=== PATIENT | female | born 1955 | race American Indian/Alaskan Native ===

== ENCOUNTER 2016-03-03 11:51 | Outpatient (CLI) | payer BC ==
[2016-03-03 12:33] LABS: Albumin 4.2 g/dL (3.9-5); BUN/Creatinine Ratio 15.33; Chloride 97.2 mmol/L (98-107); Phosphorous 3.7 mg/dL (2.5-4.5); Potassium 3.9 mmol/L (3.6-5.0)
[2016-03-03 13:27] LABS: Calcium 24 Hour,Urine 11.7; Calcium, Urine 0.9 mg/dL (6.8-21.3)
[2016-03-05 17:28] LABS: Vitamin D, 25-OH, Total 39 ng/mL (30-100)
== END 2016-03-03 11:52 | disposition home or self-care (01) ==
LOC: LAB 11:51
PROVIDERS: ATTEND Internal Medicine Nephrology
DX: I12.9 Hypertensive chronic kidney disease with stage 1 through stage 4 chronic kidney disease, or unspecified chronic kidney disease (principal); N18.3 Chronic kidney disease, stage 3 (moderate); E11.22 Type 2 diabetes mellitus with diabetic chronic kidney disease; E78.5 Hyperlipidemia, unspecified; E55.9 Vitamin D deficiency, unspecified
CPT/HCPCS: 36415; 80048; 82040; 82306; 82340; 82570; 82652; 83970; 84100

== ENCOUNTER 2016-03-16 13:45 | Outpatient (CLI) | payer BC ==
--- NOTE | 2016-03-16 16:06 | Mammography Report ---
Bilateral mammogram: Compared to 12/24/14. CAD study utilized. Findings: Predominance of adipose tissue bilaterally. Benign scattered calcifications bilaterally without significant interval change. Benign axillary nodes. No microcalcification. Impression: Benign findings. Annual followup recommended. BI-RADS CATEGORY: 2 = Benign ACR BI-RADS MAMMOGRAPHIC CODES: 0 = Needs additional imaging evaluation; 1 = Negative; 2 = Benign; 3 = Probably benign; 4 = Suspicious; 5 = Malignant; 6 = Known biopsy-proven malignancy COMMENT: 1. Dense breast tissue, i.e., adenosis, fibrocystic changes, etc., may obscure an underlying neoplasm. 2. Approximately 10% of cancers are not detected with mammography. 3. A negative mammography report should not delay biopsy if a clinically suspicious mass is present. COMMENT: Patient follow-up letters are generated in [employer].
== END 2016-03-16 13:46 | disposition home or self-care (01) ==
LOC: MAMMO 13:45
PROVIDERS: ATTEND Internal Medicine
DX: Z12.31 Encounter for screening mammogram for malignant neoplasm of breast (principal)
CPT/HCPCS: 77067; G0202

== ENCOUNTER 2017-03-03 07:16 | Outpatient (CLI) | payer BC ==
--- NOTE | 2017-03-03 08:15 | XRay Report ---
BILATERAL KNEES, STANDING AP VIEW: History: Bilateral primary osteoarthritis of knees. Findings: No comparison. There is normal bone mineralization. No fracture or suspicious bone lesion is identified. No valgus or varus deformity. Minimal joint space narrowing and marginal spurring is noted in the medial compartment of the right knee. The lateral compartment is unremarkable. The left knee is within normal limits. Impression: Minimal osteoarthritic disease in the medial compartment of the right knee.
== END 2017-03-03 07:17 | disposition home or self-care (01) ==
LOC: XRAY 07:16
PROVIDERS: ATTEND Orthopaedic Surgery
DX: M17.11 Unilateral primary osteoarthritis, right knee (principal)
CPT/HCPCS: 73565

== ENCOUNTER 2017-05-03 13:12 | Outpatient (CLI) | payer BC ==
--- NOTE | 2017-05-05 07:21 | Mammography Report ---
Bilateral mammogram: Compared to 03/16/16. CAD study utilized. Findings: Predominance adipose tissue bilaterally. Benign calcifications left breast. Benign density right and left breast. No microcalcification. Impression: Benign findings. Annual followup recommended. BI-RADS CATEGORY: 2 = Benign ACR BI-RADS MAMMOGRAPHIC CODES: 0 = Needs additional imaging evaluation; 1 = Negative; 2 = Benign; 3 = Probably benign; 4 = Suspicious; 5 = Malignant; 6 = Known biopsy-proven malignancy COMMENT: 1. Dense breast tissue, i.e., adenosis, fibrocystic changes, etc., may obscure an underlying neoplasm. 2. Approximately 10% of cancers are not detected with mammography. 3. A negative mammography report should not delay biopsy if a clinically suspicious mass is present. COMMENT: Patient follow-up letters are generated in [facility].
== END 2017-05-03 13:13 | disposition home or self-care (01) ==
LOC: MAMMO 13:12
PROVIDERS: ATTEND Internal Medicine
DX: Z12.31 Encounter for screening mammogram for malignant neoplasm of breast (principal)
CPT/HCPCS: 77067

== ENCOUNTER 2017-10-28 07:06 | Outpatient (CLI) | payer BC ==
[2017-10-28 07:30] LABS: Basophils # (Auto) 0.1 K/mm3 (0.0-0.1); Basophils % (Auto) 0.7 % (0.0-1.8); Eosinophils # (Auto) 0.1 K/mm3 (0.0-0.4); Eosinophils % (Auto) 1.1 % (0.0-4.3); Hematocrit 38.1 % (30.3-42.9); Hemoglobin 12.6 gm/dl (10.1-14.3); Lymphocytes # (Auto) 1.9 K/mm3 (1.2-5.4); Lymphocytes % (Auto) 20.1 % (13.4-35.0); Mean Corpuscular HGB Conc 33 % (30-34); Mean Corpuscular Hemoglobin 28 pg (28-32); Mean Corpuscular Volume 84 fl (79-97); Monocytes # (Auto) 0.9 K/mm3 (0.0-0.8); Monocytes % (Auto) 9.2 % (0.0-7.3); Platelet Count 381 K/mm3 (140-440); Red Blood Count 4.55 M/mm3 (3.65-5.03); Red Cell Distribution Width 14.5 % (13.2-15.2)
[2017-10-28 07:55] LABS: Albumin 4.5 g/dL (3.9-5); Calcium 10.4 mg/dL (8.4-10.2)
== END 2017-10-28 07:07 | disposition home or self-care (01) ==
LOC: LAB 07:06
PROVIDERS: ATTEND Internal Medicine Nephrology
DX: E11.22 Type 2 diabetes mellitus with diabetic chronic kidney disease (principal); I12.9 Hypertensive chronic kidney disease with stage 1 through stage 4 chronic kidney disease, or unspecified chronic kidney disease; N18.3 Chronic kidney disease, stage 3 (moderate); E11.65 Type 2 diabetes mellitus with hyperglycemia; E78.5 Hyperlipidemia, unspecified; E55.9 Vitamin D deficiency, unspecified; J45.909 Unspecified asthma, uncomplicated; Z90.710 Acquired absence of both cervix and uterus; Z87.891 Personal history of nicotine dependence
CPT/HCPCS: 36415; 80048; 82040; 82306; 83970; 84100; 85025

== ENCOUNTER 2017-11-29 09:57 | Outpatient (CLI) | payer BC ==
--- NOTE | 2017-11-29 14:16 | Nuclear Medicine Report ---
NUCLEAR MEDICINE PARATHYROID SCAN: History: Hyperparathyroidism. FINDINGS: The initial scintigraphic images of the thyroid bed demonstrate normal and symmetric uptake of the radiotracer in the thyroid bed. Normal salivary and mediastinal activity is identified. The delayed images demonstrate normal washout of the radiotracer from the thyroid bed. No persistent activity is identified to suggest a parathyroid adenoma. IMPRESSION: Unremarkable parathyroid scan.
== END 2017-11-29 09:58 | disposition home or self-care (01) ==
LOC: NM 09:57
PROVIDERS: ATTEND Internal Medicine Nephrology
DX: E21.3 Hyperparathyroidism, unspecified (principal); R94.4 Abnormal results of kidney function studies; I10 Essential (primary) hypertension; E78.5 Hyperlipidemia, unspecified; E11.65 Type 2 diabetes mellitus with hyperglycemia
CPT/HCPCS: 78070; A9500

== ENCOUNTER 2017-12-16 07:22 | Outpatient (CLI) | payer BC ==
[2017-12-16 07:59] LABS: Lipase 35 units/L (13-60)
== END 2017-12-16 07:23 | disposition home or self-care (01) ==
LOC: LAB 07:22
PROVIDERS: ATTEND Internal Medicine
DX: E11.65 Type 2 diabetes mellitus with hyperglycemia (principal); R11.0 Nausea; I10 Essential (primary) hypertension; E78.5 Hyperlipidemia, unspecified; J45.909 Unspecified asthma, uncomplicated; Z90.710 Acquired absence of both cervix and uterus; Z87.891 Personal history of nicotine dependence
CPT/HCPCS: 36415; 82150; 83036; 83690

== ENCOUNTER 2018-10-14 12:11 | Outpatient (CLI) | payer BC ==
[2018-10-14 12:53] LABS: Creatinine,Urine 49.3 mg/dL (0.1-20.0)
[2018-10-14 12:57] LABS: Albumin 4.2 g/dL (3.9-5)
[2018-10-14 12:57] LABS: Microalbumin/Creatinine Ratio 24.3 ug/mg
[2018-10-14 13:17] LABS: Chol/HDL Ratio 2.87 %
[2018-10-14 13:38] LABS: Hematocrit 39.6 % (30.3-42.9); Hemoglobin 13.4 gm/dl (10.1-14.3); Mean Corpuscular HGB Conc 34 % (30-34); Mean Corpuscular Volume 85 fl (79-97); Platelet Count 302 K/mm3 (140-440); Red Blood Count 4.64 M/mm3 (3.65-5.03); Red Cell Distribution Width 14.3 % (13.2-15.2)
== END 2018-10-14 12:12 | disposition home or self-care (01) ==
LOC: LAB 12:11
PROVIDERS: ATTEND Internal Medicine
DX: E11.65 Type 2 diabetes mellitus with hyperglycemia (principal); I10 Essential (primary) hypertension; J45.909 Unspecified asthma, uncomplicated; Z90.710 Acquired absence of both cervix and uterus
CPT/HCPCS: 36415; 80053; 80061; 82043; 83036; 84436; 84443; 84481; 85027

== ENCOUNTER 2018-11-07 09:57 | Outpatient (CLI) | payer BC ==
--- NOTE | 2018-11-07 12:59 | Mammography Report ---
DIGITAL SCREENING MAMMOGRAM WITH CAD, 11/07/2018 INDICATION: Routine screening mammography. TECHNIQUE: Digital bilateral 2D mammography was obtained in the craniocaudal and mediolateral obliq ue projections. This examination was interpreted with the benefit of Computer-Aided Detection analysi s. COMPARISON: 05/03/2017 and 03/16/2016 FINDINGS: Breast Density: There are scattered areas of fibroglandular density. There is no evidence of dominant mass, suspicious calcifications or architectural distortion in eithe r breast. A right upper biopsy clip and a stable density at the clip. Bilateral calcifications with b enign morphology are stable. IMPRESSION: No mammographic evidence of malignancy. Follow up recommendation: Routine yearly BI-RADS Category 2: Benign. A "normal" or negative report should not discourage follow up or biopsy of a clinically significant f inding. A written summary of these findings will be mailed to the patient. The patient will be entered into a mammography reporting system which will generate a reminder letter for the patient's next appointmen t at the appropriate interval. The [employer] recommends yearly mammograms starting at age 40 and continuing as l aram as a woman is in good health. Breast MRI is recommended for women with an approximate 20-25% or greater lifetime risk of breast cancer, including women with a strong family history of breast or ova tanisha cancer or who have been treated for Hodgkin's disease. Signer Name: Paulino Garcia MD Signed: 11/07/2018 12:54 PM Workstation Name: [id number]
== END 2018-11-07 09:58 | disposition home or self-care (01) ==
LOC: MAMMO 09:57
PROVIDERS: ATTEND Internal Medicine
DX: Z12.31 Encounter for screening mammogram for malignant neoplasm of breast (principal)
CPT/HCPCS: 77067

== ENCOUNTER 2019-01-11 06:15 | Outpatient (CLI) | payer BC ==
[2019-01-11 07:05] LABS: Albumin 4.2 g/dL (3.9-5); Calcium 9.7 mg/dL (8.4-10.2); Chol/HDL Ratio 2.93 %
[2019-01-11 07:09] LABS: Hemoglobin 13.1 gm/dl (10.1-14.3); Mean Corpuscular HGB Conc 33 % (30-34); Mean Corpuscular Volume 87 fl (79-97); Platelet Count 286 K/mm3 (140-440); Red Blood Count 4.61 M/mm3 (3.65-5.03); Red Cell Distribution Width 14.3 % (13.2-15.2)
[2019-01-11 07:27] LABS: Free T4 (Free Thyroxine) 1.31 ng/dL (0.76-1.46)
== END 2019-01-11 06:16 | disposition home or self-care (01) ==
LOC: LAB 06:15
PROVIDERS: ATTEND Physician Assistant
DX: E11.9 Type 2 diabetes mellitus without complications (principal); E78.5 Hyperlipidemia, unspecified
CPT/HCPCS: 36415; 80053; 80061; 83036; 84439; 84443; 85027

== ENCOUNTER 2019-03-21 07:32 | Outpatient (CLI) | payer BC ==
--- NOTE | 2019-03-21 08:29 | XRay Report ---
CHEST 2 VIEWS INDICATION: ACUTE BRONCHITIS UNSPECIFIED ORGANISM/[id number]/[id number]. COMPARISON: 12/04/2014 FINDINGS: Support devices: None. Heart: Within normal limits. Lungs/pleura: No acute air space or interstitial disease. No pneumothorax. Additional findings: None. IMPRESSION: 1. No acute findings. Signer Name: Marco Staley MD Signed: 03/21/2019 8:24 AM Workstation Name: [id number]
== END 2019-03-21 07:33 | disposition home or self-care (01) ==
LOC: XRAY 07:32
PROVIDERS: ATTEND Internal Medicine
DX: R05 Cough (principal); R06.02 Shortness of breath; J20.9 Acute bronchitis, unspecified
CPT/HCPCS: 71046

== ENCOUNTER 2019-07-25 05:40 | Outpatient (CLI) | payer BC ==
[2019-07-25 06:34] LABS: Hematocrit 40.9 % (30.3-42.9); Hemoglobin 13.4 gm/dl (10.1-14.3); Mean Corpuscular HGB Conc 33 % (30-34); Mean Corpuscular Volume 88 fl (79-97); Red Blood Count 4.64 M/mm3 (3.65-5.03)
[2019-07-25 06:41] LABS: Platelet Count 289 K/mm3 (140-440)
[2019-07-25 07:10] LABS: Albumin 4.2 g/dL (3.9-5); Calcium 9.9 mg/dL (8.4-10.2); Chol/HDL Ratio 2.83 %
== END 2019-07-25 05:41 | disposition home or self-care (01) ==
LOC: LAB 05:40
PROVIDERS: ATTEND Physician Assistant
DX: E11.9 Type 2 diabetes mellitus without complications (principal); E78.2 Mixed hyperlipidemia
CPT/HCPCS: 36415; 80053; 80061; 83036; 84436; 84443; 85027

== ENCOUNTER 2019-12-08 05:37 | Outpatient (CLI) | payer BC ==
[2019-12-08 06:24] LABS: Hematocrit 38.1 % (30.3-42.9); Hemoglobin 13.2 gm/dl (10.1-14.3); Mean Corpuscular HGB Conc 35 % (30-34); Mean Corpuscular Volume 88 fl (79-97); Platelet Count 286 K/mm3 (140-440); Red Blood Count 4.33 M/mm3 (3.65-5.03); Red Cell Distribution Width 13.4 % (13.2-15.2)
[2019-12-08 06:44] LABS: Alanine Aminotransferase 23 units/L (7-56); Albumin 4.3 g/dL (3.9-5); BUN/Creatinine Ratio 15; Blood Urea Nitrogen 17 mg/dL (7-17); Calcium 10.1 mg/dL (8.4-10.2); HDL Cholesterol 58 mg/dL (40-59); Hemolysis Index 3; LDL Cholesterol,Direct 115 mg/dL (50-130)
== END 2019-12-08 05:38 | disposition home or self-care (01) ==
LOC: LAB 05:37
PROVIDERS: ATTEND Physician Assistant
DX: E11.9 Type 2 diabetes mellitus without complications (principal)
CPT/HCPCS: 36415; 80053; 80061; 83036; 85027

== ENCOUNTER 2020-02-28 07:17 | Outpatient (CLI) | payer BC ==
[2020-02-28 08:05] LABS: Hematocrit 39.9 % (30.3-42.9); Hemoglobin 13.4 gm/dl (10.1-14.3); Mean Corpuscular HGB Conc 34 % (30-34); Mean Corpuscular Volume 88 fl (79-97); Platelet Count 320 K/mm3 (140-440); Red Blood Count 4.54 M/mm3 (3.65-5.03); Red Cell Distribution Width 13.9 % (13.2-15.2)
[2020-02-28 08:25] LABS: Alanine Aminotransferase 20 units/L (7-56); Albumin 4.3 g/dL (3.9-5); BUN/Creatinine Ratio 16; Blood Urea Nitrogen 18 mg/dL (7-17); Chol/HDL Ratio 3.07 %; HDL Cholesterol 65 mg/dL (40-59); Hemolysis Index 0; LDL Cholesterol,Direct 120 mg/dL (50-130)
[2020-02-28 09:00] LABS: Free T4 (Free Thyroxine) 1.25 ng/dL (0.76-1.46)
== END 2020-02-28 07:18 | disposition home or self-care (01) ==
LOC: LAB 07:17
PROVIDERS: ATTEND Physician Assistant
DX: E11.9 Type 2 diabetes mellitus without complications (principal)
CPT/HCPCS: 36415; 80053; 80061; 83036; 84439; 84443; 84481; 85027

== ENCOUNTER 2020-06-19 06:50 | Outpatient (CLI) | payer BC ==
[2020-06-19 07:43] LABS: Basophils # (Auto) 0.1 K/mm3 (0.0-0.1); Basophils % (Auto) 1.5 % (0.0-1.8); Eosinophils # (Auto) 0.1 K/mm3 (0.0-0.4); Eosinophils % (Auto) 0.7 % (0.0-4.3); Hematocrit 42.9 % (30.3-42.9); Hemoglobin 14.3 gm/dl (10.1-14.3); Lymphocytes # (Auto) 2.3 K/mm3 (1.2-5.4); Lymphocytes % (Auto) 23.5 % (13.4-35.0); Mean Corpuscular HGB Conc 33 % (30-34); Mean Corpuscular Volume 90 fl (79-97); Monocytes # (Auto) 0.9 K/mm3 (0.0-0.8); Monocytes % (Auto) 9.2 % (0.0-7.3); Platelet Count 313 K/mm3 (140-440); Red Blood Count 4.78 M/mm3 (3.65-5.03); Red Cell Distribution Width 14.1 % (13.2-15.2)
[2020-06-19 08:03] LABS: Calcium 10.1 mg/dL (8.4-10.2); Chol/HDL Ratio 3.31 %
== END 2020-06-19 06:51 | disposition home or self-care (01) ==
LOC: LAB 06:50
PROVIDERS: ATTEND Physician Assistant
DX: E11.9 Type 2 diabetes mellitus without complications (principal)
CPT/HCPCS: 36415; 80053; 80061; 83036; 84436; 84443; 84481; 85025

== ENCOUNTER 2020-12-06 09:48 | Outpatient (CLI) | payer BC ==
--- NOTE | 2020-12-06 11:41 | Mammography Report ---
DIGITAL SCREENING MAMMOGRAM WITH CAD, 12/06/2020 CLINICAL INFORMATION / INDICATION: Routine screening mammography. SCREENING MAMMOGRAM TECHNIQUE: Digital bilateral 2D mammography was obtained in the craniocaudal and mediolateral obliqu e projections. This examination was interpreted with the benefit of Computer-Aided Detection analysis . COMPARISON: 11/07/2018. FINDINGS: Breast Density: There are scattered areas of fibroglandular density. No dominant mass, suspicious calcifications, or architectural distortion in the right breast. Increasing calcifications anterior left breast both medially and laterally. Magnification views are r ecommended. IMPRESSION: Increasing left breast calcifications. Follow up recommendation: Special View: Mag BI-RADS Category 0: Incomplete. Needs additional imaging evaluation and/or prior mammograms for juanito carter. A "normal" or negative report should not discourage follow up or biopsy of a clinically significant f inding. A written summary of these findings will be mailed to the patient. The patient will be entered into a mammography reporting system which will generate a reminder letter for the patient's next appointmen t at the appropriate interval. The [employer] recommends yearly mammograms starting at age 40 and continuing as l aram as a woman is in good health. Breast MRI is recommended for women with an approximate 20-25% or greater lifetime risk of breast cancer, including women with a strong family history of breast or ova tanisha cancer or who have been treated for Hodgkin's disease. Signer Name: Bob Parker MD Signed: 12/06/2020 11:37 AM Workstation Name: [email or web address]
--- NOTE | 2020-12-06 14:42 | Magnetic Resonance Report ---
MRI LEFT ANKLE WITHOUT CONTRAST INDICATION / CLINICAL INFORMATION: TENDONITIS. TECHNIQUE: Multiplanar, multisequence MR images were obtained. No contrast used. Marker placed on the medial aspect of the midfoot. COMPARISON: None available. FINDINGS: ACHILLES TENDON: No significant abnormality. PLANTAR FASCIA: No significant abnormality. POSTERIOR TIBIAL / FLEXOR TENDONS: Mild tenosynovitis of posterior tibial tendon. PERONEAL TENDONS: No significant abnormality. ANTERIOR TIBIAL / EXTENSOR TENDONS: No significant abnormality. TALOFIBULAR LIGAMENTS: No significant abnormality. TIBIOFIBULAR LIGAMENTS: No significant abnormality. DISTAL TIBIOFIBULAR SYNDESMOSIS: No significant abnormality. CALCANEOFIBULAR LIGAMENT: No significant abnormality. DELTOID LIGAMENT: No significant abnormality. SPRING LIGAMENT: Severely attenuated. TIBIOTALAR JOINT SPACE: No chondrosis or articular cartilage defect. No significant joint effusion or synovitis. No intra-articular bodies. SUBTALAR JOINTS: No significant abnormality. SINUS TARSI: No significant abnormality. TARSAL TUNNEL: No significant abnormality. BONES / OTHER JOINTS: No significant bone marrow edema. No fracture. No osseous lesion. Mild pes plan us. SUBCUTANEOUS SOFT TISSUES: Edema in subcutaneous tissues at the medial ankle deep to the external mar ker. ADDITIONAL FINDINGS: None. IMPRESSION: 1. Mild tenosynovitis of posterior tibial tendon with mild pes planus suggestive of posterior tibial dysfunction. Report dictated by: Zan Pressley MD Report dictated on: 12/06/2020 12:22 PM I have reviewed the images, agree with this report, and edited this report as needed. Signer Name: Elinor Byrd MD Signed: 12/06/2020 2:38 PM Workstation Name: [email or web address]
== END 2020-12-06 09:49 | disposition home or self-care (01) ==
LOC: MRI 09:48
PROVIDERS: ATTEND Internal Medicine
DX: Z12.31 Encounter for screening mammogram for malignant neoplasm of breast (principal); M76.822 Posterior tibial tendinitis, left leg
CPT/HCPCS: 73721; 77067

== ENCOUNTER 2021-05-22 13:38 | Outpatient (CLI) | payer BC ==
--- NOTE | 2021-05-22 15:21 | Mammography Report ---
DIGITAL DIAGNOSTIC MAMMOGRAM WITH CAD CONVENTIONAL, 05/22/2021 CLINICAL INFORMATION / INDICATION: Callback ABNORMAL MAMMOGRAM TECHNIQUE: Digital left mammographic imaging was performed. Magnification views were obtained. This examination was interpreted with the benefit of Computer-aided Detection analysis. COMPARISON: December 06, 2020 FINDINGS: Breast Density: There are scattered areas of fibroglandular density. Within the upper outer quadrant of the anterior third of the left breast there is a linear distributi on of coarse heterogeneous calcifications measuring up to 2.8 cm. IMPRESSION: Suspicious coarse heterogeneous calcifications within the left upper outer breast. Stereo tactic biopsy is recommended. Follow up recommendation: Biopsy BI-RADS Category 4: SUSPICIOUS FOR MALIGNANCY. A "normal" or negative report should not discourage follow up or biopsy of a clinically significant f inding. A written summary of these findings will be mailed to the patient. The patient will be entered into a mammography reporting system which will generate a reminder letter for the patient's next appointmen t at the appropriate interval. According to the [employer], yearly mammograms are recommended starting at age 40 and continuing as long as a woman is in good health. Breast MRI is recommended for women with an zackery roximately 20-25% or greater lifetime risk of breast cancer, including women with a strong family his tory of breast or ovarian cancer and women who have been treated for Hodgkin's disease. Signer Name: Jose Yu DO Signed: 05/22/2021 3:17 PM Workstation Name: [email or web address]
== END 2021-05-22 13:39 | disposition home or self-care (01) ==
LOC: MAMMO 13:38
PROVIDERS: ATTEND Internal Medicine
DX: R92.1 Mammographic calcification found on diagnostic imaging of breast (principal)

== ENCOUNTER 2021-06-16 08:13 | Outpatient (CLI) | payer BC ==
[2021-06-16 09:02] LABS: Hematocrit 43.1 % (30.3-42.9); Hemoglobin 14.1 gm/dl (10.1-14.3); Mean Corpuscular HGB Conc 33 % (30-34); Mean Corpuscular Volume 90 fl (79-97); Platelet Count 280 K/mm3 (140-440); Red Blood Count 4.81 M/mm3 (3.65-5.03); Red Cell Distribution Width 14.1 % (13.2-15.2)
[2021-06-16 09:04] LABS: Albumin 4.6 g/dL (3.9-5); Calcium 10.9 mg/dL (8.4-10.2); Chol/HDL Ratio 3.01 %
== END 2021-06-16 08:14 | disposition home or self-care (01) ==
LOC: LAB 08:13
PROVIDERS: ATTEND Specialist
DX: E11.9 Type 2 diabetes mellitus without complications (principal)
CPT/HCPCS: 36415; 80053; 80061; 83036; 85027

== ENCOUNTER 2021-07-01 10:15 | Outpatient (CLI) | payer BC ==
--- NOTE | 2021-07-01 16:10 | Operative Report ---
Operative Report Operative Report: Procedure Date: 2021-07-01 Side: Left Facility: [facility] - Office Indication: Calcifications without mass Consent: Written - Including description, alternatives, risks Pre-proc. Imaging: Mammogram BIRADS: 4 - Suspicious Lesion Location: Upper outer quadrant Imaging Approach: Lateral to medial Skin Prep: Iodine Anesthesia Type: Lidocaine with epinephrine Amount: 6 - 10 cc Stereotactic Unit: [employer] upright Biopsy Device: Mammotome Gauge/Size: 8 Number of Cores: 11 - 15 Targeting Accuracy: Excellent Specimen Radiograph: Targeted calcifications obtained Biopsy Marker: Not inserted Marker Place. Conf.: Digital stereotactic images Marker Position: Incision Closure: Steristrips Planned Follow-up: Office appointment given Immed. Complications: None Comments: Biopsy marker placement attempted but unsuccessful. Targeted microcalcifications were linear over 3 cm area residual calcifications marked with targeted area.
--- NOTE | 2021-07-02 08:47 | Mammography Report ---
DIGITAL DIAGNOSTIC MAMMOGRAM WITH CAD , 07/02/2021 CLINICAL INFORMATION / INDICATION: This is a postprocedure mammogram following stereotactic biopsy. TECHNIQUE: Digital left mammographic imaging was performed. This examination was interpreted with the benefit of Computer-aided Detection analysis. COMPARISON: Prior mammogram 05/22/2021 FINDINGS: Breast Density: There are scattered areas of fibroglandular density. Postprocedure mammogram following stereotactic biopsy shows partial removal of grouped calcifications in the upper outer anterior left breast. Biopsy changes are seen in the region of the calcifications . Per notes, attempt was made to deploy a clip which was unsuccessful. No clip is visualized on the p ostprocedure mammogram. However, residual calcifications are present at the site of biopsy which can be localized if clinically required. IMPRESSION: Postprocedure mammogram shows adequate sampling of the calcifications in question, upper outer quadrant left breast. Pathology correlation will will be performed by physician performing the biopsy. Follow up recommendation: No recall. Post biopsy imaging. A "normal" or negative report should not discourage follow up or biopsy of a clinically significant f inding. A written summary of these findings will be mailed to the patient. The patient will be entered into a mammography reporting system which will generate a reminder letter for the patient's next appointmen t at the appropriate interval. According to the [employer], yearly mammograms are recommended starting at age 40 and continuing as long as a woman is in good health. Breast MRI is recommended for women with an zackery roximately 20-25% or greater lifetime risk of breast cancer, including women with a strong family his tory of breast or ovarian cancer and women who have been treated for Hodgkin's disease. Signer Name: Shabnam Daniel MD Signed: 07/02/2021 8:42 AM Workstation Name: [id number]
== END 2021-07-01 10:16 | disposition home or self-care (01) ==
LOC: SPVWC 10:15
PROVIDERS: ATTEND Internal Medicine
DX: R92.1 Mammographic calcification found on diagnostic imaging of breast (principal); R92.0 Mammographic microcalcification found on diagnostic imaging of breast; R92.8 Other abnormal and inconclusive findings on diagnostic imaging of breast; E11.65 Type 2 diabetes mellitus with hyperglycemia; I10 Essential (primary) hypertension; E78.5 Hyperlipidemia, unspecified; J45.909 Unspecified asthma, uncomplicated; F32.9 Major depressive disorder, single episode, unspecified; Z98.890 Other specified postprocedural states; Z90.710 Acquired absence of both cervix and uterus; Z87.891 Personal history of nicotine dependence; Z82.49 Family history of ischemic heart disease and other diseases of the circulatory system
CPT/HCPCS: 88305

== ENCOUNTER 2021-10-02 13:39 | Outpatient (CLI) | payer BC ==
[2021-10-02 14:33] LABS: Alanine Aminotransferase 20 units/L (7-56); Albumin 4.2 g/dL (3.9-5); BUN/Creatinine Ratio 13; Blood Urea Nitrogen 14 mg/dL (7-17); Calcium 9.5 mg/dL (8.4-10.2); Chol/HDL Ratio 2.91 %; HDL Cholesterol 56 mg/dL (40-59); Hemolysis Index 0; LDL Cholesterol,Direct 93 mg/dL (50-130)
[2021-10-02 15:00] LABS: Hematocrit 41.4 % (30.3-42.9); Hemoglobin 13.5 gm/dl (10.1-14.3); Mean Corpuscular HGB Conc 33 % (30-34); Mean Corpuscular Volume 88 fl (79-97); Platelet Count 226 K/mm3 (140-440); Red Cell Distribution Width 14.2 % (13.2-15.2)
== END 2021-10-02 13:40 | disposition home or self-care (01) ==
LOC: LAB 13:39
PROVIDERS: ATTEND Specialist
DX: E11.22 Type 2 diabetes mellitus with diabetic chronic kidney disease (principal)
CPT/HCPCS: 36415; 80053; 80061; 83036; 85027